=== PATIENT | male | born 1955 | race Caucasian/White ===

== ENCOUNTER 2024-01-02 06:09 | Inpatient (IN) | payer OTHER ==
[~2024-01-02] VITALS: Ht 182.9 cm; Wt 157.7 kg
[~2024-01-02 06:09] MED LIST: AMLO1TAB21 PO; AMLO1TAB22 PO; ASCO500T11 PO; ASPI1TAB20 PO; BIMA0.01 OP; CETI10TA2 PO; CHOL100067 PO; IRBE300T48 PO; MULT1TAB95 PO; OMEG1CAP87 PO; OMEP20TA PO; ROSU10TA16 PO; VITA-89 PO
[2024-01-02] MEDS: ceFAZolin 2 GM/D5W50ml 50 ML IV ONE (06:21)
[2024-01-02] MEDS: ACETAMINOPHEN IV 100 ML IV ONE (06:21)
[2024-01-02] MEDS: TRANEXAMIC ACID 20 ML ONE (06:39)
[2024-01-02] MEDS: SUCCINYLCHOLINE CHLORIDE 20 MG/ML 10ML VIAL IV ONE (06:54)
[2024-01-02] MEDS: TETRACAINE 1% INJ 2 ML VIAL IJ ONE (06:54)
[2024-01-02] MEDS: ROCURONIUM 10MG/ML 10ML VIAL IV ONE (06:54)
[2024-01-02] MEDS: ACETAMINOPHEN IV 1000 MG/100ML (10MG/ML) IV ONE (07:10)
[2024-01-02] MEDS: CELECOXIB 100 MG CAP PO ONE (07:10)
[2024-01-02] MEDS: PREGABALIN CAPSULE 75 MG CAP PO ONE (07:10)
[2024-01-02] MEDS ORDERED: fentaNYL CITRATE 100 MCG/2 ML VL ONE (07:13)
[2024-01-02] MEDS ORDERED: ONDANSETRON HCL 4 MG/2 ML VIAL ONE (07:13)
[2024-01-02] MEDS ORDERED: SODIUM CHLORIDE LOCK 10 ML ONE (07:13)
[2024-01-02] MEDS ORDERED: EPINEPHrine HCL 1 MG/1 ML AMP ONE (07:13)
[2024-01-02] MEDS ORDERED: BUPIVACAINE/DEXTROSE MPF 0.75% 2 ML AMP IT ONE (07:13)
[2024-01-02] MEDS ORDERED: PROPOFOL 10 MG/ML 20 ML IV ONE (07:13)
[2024-01-02] MEDS ORDERED: MIDAZOLAM HCL 2MG/2ML 2ml VIAL (1mg/ml) ONE (07:13)
[2024-01-02] MEDS ORDERED: MORPHINE SULFATE INJ 2 MG/ml SYRG IV PRN ×2 (07:15→09:15)
[2024-01-02] MEDS ORDERED: METOCLOPRAMIDE HCL 5MG/ml INJ 2ml VIAL IV PRN (07:15)
[2024-01-02] MEDS ORDERED: HYDROmorphone HCL 2 MG/ML VL/or syr IV PRN ×3 (07:15→09:15)
[2024-01-02] MEDS ORDERED: KETAMINE 50mg/ML 10ml Vial 10 ML ONE (07:26)
[2024-01-02] MEDS: DexAMETHasone SOD PHOS 4 MG/1ML SDV INJ ONE (07:35)
[2024-01-02] MEDS: BUPIVACAINE 0.25% INJ 50ML VIAL ONE (08:13)
[2024-01-02] MEDS: KETOROLAC TROMETH 30 MG/ML 1ML VIAL ONE (08:13)
[2024-01-02] MEDS: MORPHINE SULF PF 5 MG/10 ML VIAL ONE (08:14)
[2024-01-02] MEDS: VANCOMYCIN HCL 1000 MG VL ONE (08:15)
[2024-01-02 09:05] VITALS: PULSE 80; RESP 12; O2SAT 95
[2024-01-02] MEDS ORDERED: ONDANSETRON HCL 4 MG/2 ML VIAL IV PRN (09:15)
[2024-01-02] MEDS: LACTATED RINGER'S 1,000 ML IV SCH (09:15)
[2024-01-02] MEDS ORDERED: ceFAZolin 1GM/50ML 50 ML IV SCH (09:15)
[2024-01-02] MEDS ORDERED: NITROGLYCERIN 0.4 MG SL TAB SL PRN (09:15)
[2024-01-02] MEDS ORDERED: ACETAMINOPHEN 325 MG TAB PO PRN (09:15)
[2024-01-02] MEDS ORDERED: OXYCODONE W/ ACETAMINOPHEN 5/325MG TABLET PO PRN (09:15)
[2024-01-02] MEDS: ENOXAPARIN SOD 40 MG/0.4 ML SYRINGE SC SCH (09:58)
[2024-01-02] MEDS: oxyCODONE ER 10 MG TAB PO SCH (10:00)
[2024-01-02] MEDS: DOCUSATE SOD 100 MG CAP PO SCH (10:00)
[2024-01-02] MEDS: HYDROCHLOROTHIAZIDE PO SCH (10:00)
[2024-01-02] MEDS: CETIRIZINE HCL 10 MG PO SCH (10:00)
[2024-01-02] MEDS: ASCORBIC ACID 500 MG TAB PO SCH (10:00)
[2024-01-02] MEDS ORDERED: PATIENTS OWN MEDICATION (Amlodipine Besylate 2.5 MG) PO SCH (10:00)
[2024-01-02] MEDS: amLODIPine BESYLATE 5 MG TAB PO SCH (10:00)
[2024-01-02] MEDS: PANTOPRAZOLE 40 MG TAB PO SCH (10:00)
[2024-01-02] MEDS: MULTIPLE VITAMIN TAB PO SCH (10:00)
[2024-01-02] MEDS: IRBESARTAN PO SCH (10:00)
[2024-01-02] MEDS: CHOLECALCIFEROL (VITD3) 1,000UNIT=25mCg TAB PO SCH (10:00)
[2024-01-02] MEDS: LIDOCAINE 1% HCL (LOCAL ANESTH.) INJ 20ML MDV ONE (10:11)
[2024-01-02 11:45] VITALS: PULSE 76; RESP 17; O2SAT 92
[2024-01-02 12:53] VITALS: BP 118/62; PULSE 76; RESP 17; TEMP 97.3; O2SAT 92
[2024-01-02] MEDS: ceFAZolin 1GM/50ML 50 ML IV SCH (15:23)
[2024-01-02 17:01] LABS: Basophils # (auto) 0 10 ^3/uL (0-0.2); Basophils % (auto) 0.3 % (0.0-2.0); Eosinophils # (auto) 0 10 ^3/uL (0-0.8); Hematocrit 42.7 % (41.0-53.0); Hemoglobin 14.1 g/dL (13.5-17.5); Lymphocytes # (auto) 0.4 10 ^3/uL (0.4-5.4); Lymphocytes % (auto) 3.1 % (10.0-50.0); Mean Corpuscular Hemoglobin 29.4 pg (28.0-32.0); Mean Corpuscular Volume 89.1 fL (80.0-100.0); Monocytes # (auto) 0.3 10 ^3/uL (0-1.3); Monocytes % (auto) 2.3 % (0.0-12.0); Neutrophils # (auto) 12.2 10 ^3/uL (1.6-8.6); Neutrophils % (auto) 94.3 % (37.0-80.0); Nucleated Red Blood Cells % 0.1 %; Red Blood Cells 4.79 10^6/uL (4.5-5.90); Red Cell Distribution Width 14.4 % (11.8-14.3); White Blood Cell 12.9 10^3/uL (4.4-10.8)
[2024-01-02 17:06] VITALS: BP 113/68; PULSE 70; RESP 17; TEMP 98; O2SAT 93
[2024-01-02 17:24] LABS: Alanine Aminotransferase 44 U/L (7-40); Alkaline Phosphatase 36 U/L (46-116); Anion Gap 3 (5-15); Aspartate Aminotransferase 96 U/L (13-40); BUN/Creatinine Ratio 13.2 (10.0-20.0); Blood Urea Nitrogen 17 mg/dL (9-23); Calcium 9.1 mg/dL (8.5-10.1); Carbon Dioxide 28 mmol/L (20-30); Chloride 106 mmol/L (98-107); Glucose 147 mg/dL (74-106); Potassium 4.4 mmol/L (3.5-5.1); Sodium 137 mmol/L (136-145)
[2024-01-02 17:25] LABS: Bilirubin, Total 0.9 mg/dL (0.2-1.0); Total Protein 6.5 g/dL (5.7-8.2)
[2024-01-02 20:00] VITALS: BP 110/50; PULSE 67; RESP 18; TEMP 98.8; O2SAT 93
[2024-01-02] MEDS: ATORVASTATIN 20 MG TAB PO SCH (21:58)
[2024-01-02 23:32] VITALS: BP 110/50; PULSE 67; RESP 18; TEMP 98.8; O2SAT 91
[2024-01-03] VITALS (7 sets, daily range): BP systolic 102–124; BP diastolic 58–73; PULSE 57–67; RESP 16–20; TEMP 97.9–98.2; O2SAT 92–96
[2024-01-03 05:39] LABS: Basophils # (auto) 0 10 ^3/uL (0-0.2); Eosinophils # (auto) 0 10 ^3/uL (0-0.8); Eosinophils % (auto) 0.1 % (0.0-7.0); Hemoglobin 12.4 g/dL (13.5-17.5); Lymphocytes # (auto) 0.8 10 ^3/uL (0.4-5.4); Lymphocytes % (auto) 6.4 % (10.0-50.0); Mean Corpuscular Hemoglobin 29.7 pg (28.0-32.0); Mean Corpuscular Hgb Conc. 33.4 g/dL (32.0-36.0); Mean Corpuscular Volume 88.8 fL (80.0-100.0); Monocytes # (auto) 1.1 10 ^3/uL (0-1.3); Monocytes % (auto) 9.4 % (0.0-12.0); Neutrophils % (auto) 84.1 % (37.0-80.0); Red Blood Cells 4.17 10^6/uL (4.5-5.90); White Blood Cell 11.9 10^3/uL (4.4-10.8)
[2024-01-03 05:41] LABS: Alanine Aminotransferase 33 U/L (7-40); Alkaline Phosphatase 30 U/L (46-116); Anion Gap 4 (5-15); Aspartate Aminotransferase 96 U/L (13-40); BUN/Creatinine Ratio 16.8 (10.0-20.0); Blood Urea Nitrogen 23 mg/dL (9-23); Calcium 8.8 mg/dL (8.5-10.1); Carbon Dioxide 28 mmol/L (20-30); Chloride 105 mmol/L (98-107); Glucose 126 mg/dL (74-106); Potassium 4.9 mmol/L (3.5-5.1); Sodium 137 mmol/L (136-145)
[2024-01-03 05:42] LABS: Albumin 3.6 g/dL (3.2-4.8); Total Protein 5.8 g/dL (5.7-8.2)
[2024-01-03 20:25] LABS: Urine WBC None Seen /hpf (0 - 3)
[2024-01-03 21:05] LABS: Urine Bacteria NONE SEEN /hpf (None Seen); Urine Blood Negative /uL (Negative); Urine Clarity Clear (Clear); Urine Color Colorless (Yellow); Urine Protein, UAD Negative (Negative); Urine Specific Gravity 1.014 (1.001-1.035); Urine Urobilinogen Normal (Negative); Urine pH 5.5 (5.0-8.0)
[2024-01-04 05:00] VITALS: BP 113/50; PULSE 60; RESP 17; TEMP 98.2; O2SAT 92
[2024-01-04 08:00] VITALS: PULSE 62; RESP 18; O2SAT 94
[2024-01-04 09:00] VITALS: BP 111/64; PULSE 61; RESP 20; TEMP 98; O2SAT 91
[2024-01-04 13:00] VITALS: BP 119/62; PULSE 61; RESP 18; TEMP 98.4; O2SAT 94
[2024-01-04 15:19] VITALS: BP 118/78; PULSE 66; RESP 20; TEMP 36.9; O2SAT 99
== END 2024-01-04 15:50 | disposition home health service (06) | DRG 470 ==
LOC: SUR 06:09 → OVERFLOW 09:06 → EAST 11:26
PROVIDERS: ADMIT Orthopaedic Surgery Adult Reconstructive Orthopaedic Surgery; ATTEND Internal Medicine
PROC: 8E0YXBZ Computer Assisted Procedure of Lower Extremity (ICD-10-PCS; 2024-01-02)
PROC: 0SRB06Z Replacement of Left Hip Joint with Oxidized Zirconium on Polyethylene Synthetic Substitute, Open Approach (ICD-10-PCS; principal; 2024-01-02 07:23)
DX: M16.12 Unilateral primary osteoarthritis, left hip (principal); Z68.42 Body mass index [BMI] 45.0-49.9, adult; R71.0 Precipitous drop in hematocrit; E66.01 Morbid (severe) obesity due to excess calories; E78.5 Hyperlipidemia, unspecified; N18.30 Chronic kidney disease, stage 3 unspecified; I12.9 Hypertensive chronic kidney disease with stage 1 through stage 4 chronic kidney disease, or unspecified chronic kidney disease
CPT/HCPCS: 36415; 72170; 73501; 80053; 81001; 85025; 86850; 86900; 86901; 97110; 97116; 97163; 97530; C1713; G0378; J0131; J0171; J0330; J1100; J1885; J2001; J2250; J2405; J2704; J3490